=== PATIENT | female | born 1970 | race Two or more races ===

== ENCOUNTER 2018-11-09 12:13 | Emergency (ER) | payer SELFPAY ==
[~2018-11-09] VITALS: Ht 165.1 cm; Wt 97.5 kg
[2018-11-09 12:20] VITALS: BP 126/85
== END 2018-11-09 14:15 | disposition left against medical advice (07) ==
LOC: ER 12:13 → EDBD 12:13 → ER 14:15
DX: M54.5 Low back pain (principal); Z53.21 Procedure and treatment not carried out due to patient leaving prior to being seen by health care provider